=== PATIENT | male | born 1950 | race Caucasian/White ===

== ENCOUNTER → 2017-09-10 | Day surgery (SDC) | payer MEDICARE ==
[~2017-09-10] MED LIST: GLYCOPYRROLATE 1 MG/5 ML VIAL.; LIDOCAINE 1% PF 2 ML VIAL. ID; MIDAZOLAM HCL/PF 2 MG/2 ML VIAL. IV; PROPOFOL 40 ML IV; fentaNYL PF VIAL 100 MCG/2 ML VIAL IV
[2017-09-10] MEDS: IV RINGERS,LACTATED 1000ML 1,000 ML IV (08:37)
[2017-09-10 11:05] LABS: ANION GAP 5 (6-14); BLOOD UREA NITROGEN 14 mg/dL (8-26); CALCIUM 9.1 mg/dL (8.5-10.1); CARBON DIOXIDE 28 mmol/L (21-32); CHLORIDE 107 mmol/L (98-107); CREATININE 1.1 mg/dL (0.7-1.3); GFR 66.6; GLUCOSE 100 mg/dL (70-99); POTASSIUM 3.9 mmol/L (3.5-5.1); SODIUM 140 mmol/L (136-145)
[2017-09-10 11:06] LABS: MAGNESIUM 2.4 mg/dL (1.8-2.4)
== END ==
LOC: SURG 07:53
DX: Z12.11 Encounter for screening for malignant neoplasm of colon (principal); K64.0 First degree hemorrhoids; Z85.828 Personal history of other malignant neoplasm of skin; Z83.3 Family history of diabetes mellitus; Z80.8 Family history of malignant neoplasm of other organs or systems; Z79.82 Long term (current) use of aspirin; Z79.899 Other long term (current) drug therapy; Z98.890 Other specified postprocedural states
CPT/HCPCS: 36415; 45378; 80048; 83735; 93005; J2704; J3490

== ENCOUNTER 2020-12-05 14:16 | Emergency (ER) | payer OTHER, MEDICARE ==
[~2020-12-05] VITALS: Ht 177.8 cm; Wt 70.4 kg
[~2020-12-05 14:16] MED LIST changes: +ASPI-630 PO; +BIMA2.5D OP; -GLYCOPYRROLATE 1 MG/5 ML VIAL.; -LIDOCAINE 1% PF 2 ML VIAL. ID; -MIDAZOLAM HCL/PF 2 MG/2 ML VIAL. IV; -PROPOFOL 40 ML IV; +TAMS0.4C2 PO; -fentaNYL PF VIAL 100 MCG/2 ML VIAL IV
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
[2020-12-05 17:00] VITALS: BP 143/72
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
== END 2020-12-05 17:24 | disposition home or self-care (01) ==
LOC: ER 14:16
DX: R07.81 Pleurodynia (principal); M25.561 Pain in right knee; G89.11 Acute pain due to trauma; V49.59XA Passenger injured in collision with other motor vehicles in traffic accident, initial encounter; Y93.89 Activity, other specified; Y92.488 Other paved roadways as the place of occurrence of the external cause; Y99.8 Other external cause status
CPT/HCPCS: 71111; 99283; 99284